=== PATIENT | male | born 1940 | race Hispanic/Latino ===

== ENCOUNTER 2021-05-19 07:07 | Day surgery (SDC) | payer OTHER ==
[2021-05-13 14:45] LABS: APPEARANCE,URINE CLEAR (CLEAR); BASOPHILS % (AUTO) 1.1 % (0.0-5.0); BILIRUBIN,URINE NEGATIVE (NEGATIVE); COLOR,URINE YELLOW (YELLOW); GLUCOSE, URINE (UA) 100 mg/dL (NEGATIVE); HEMATOCRIT 36.4 % (42-54); KETONES,URINE NEGATIVE (NEGATIVE); LEUKOCYTE ESTERASE ,URINE NEGATIVE (NEGATIVE); MEAN CORPUSCULAR HEMOGLOBIN 29.5 pg (27.0-33.0); MEAN CORPUSCULAR HGB CONC 32.1 g/dL (32.0-36.0); MEAN CORPUSCULAR VOLUME 91.9 fL (79-99); MONOCYTES % (AUTO) 8.6 % (3.0-13.0); NEUTROPHILS % (AUTO) 56.8 % (40.0-77.0); NITRATE,URINE NEGATIVE (NEGATIVE); OCCULT BLOOD,URINE NEGATIVE (NEGATIVE); PH,URINE 6.5 (5.0-8.0); PLATELET COUNT (AUTO) 213 K/uL (130-400); PROTEIN,URINE NEGATIVE (NEGATIVE); RED BLOOD CELL COUNT(AUTO) 3.96 MIL/uL (4.50-6.20); RED CELL DISTRIBUTION WIDTH 12.8 % (11.0-15.5); WHITE BLOOD COUNT (AUTO) 6.6 K/uL (4.8-10.8)
[2021-05-13 14:50] LABS: CREATININE 0.9 mg/dL (0.5-1.5); POTASSIUM 4.1 mmol/L (3.5-5.1)
[2021-05-13 14:54] LABS: INR 1.02 (0.85-1.15); PROTHROMBIN TIME 11.1 SEC (9.6-11.6)
[2021-05-13 14:55] LABS: PARTIAL THROMBOPLASTIN TIME 27.3 SEC (26.3-35.5)
[2021-05-13 15:10] LABS: RBC,URINE 0-1 /HPF (0-1); WBC,URINE 0-1 /HPF (0-1)
[2021-05-13 15:11] LABS: BACTERIA,URINE Rare /HPF (None Seen); MUCUS,URINE Rare LPF (None Seen); SQUAMOUS EPITHELIAL CELL,UR Rare /HPF (0-2)
[2021-05-18 09:39] VITALS: BP 135/62
[2021-05-19] VITALS (16 sets, daily range): BP systolic 114–133; BP diastolic 60–76
[~2021-05-19] VITALS: Ht 175.3 cm; Wt 82.1 kg
[~2021-05-19 07:07] MED LIST: AEC81 PO; ATOR10 PO; CARV3.12 PO; CEFTRIAXONE 1G VIAL IVP SCH; DILT240C94 PO; DOXA4TAB3 PO; ENAL20TA18 PO; GENTAMICIN 80 MG/NS 100 ML PB 100 ML IV SCH; HYDR25TA PO; INSU100V37 SQ; METF-446 PO; PANT40TA54 PO; TADA5TAB PO
[2021-05-19] MEDS ORDERED: LIDOCAINE PF 100MG/5ML (2%) SYRINGE 5ML ONE (07:19)
[2021-05-19] MEDS ORDERED: SUCCINYLCHOLINE 200MG/10ML SYR ONE (07:19)
[2021-05-19] MEDS ORDERED: DEXAMETHASONE SOD PHOSPHATE 10MG/ML 1ML VIAL ONE (07:19)
[2021-05-19] MEDS ORDERED: PROPOFOL 10 MG/ML 20ML VIAL IV ONE (07:20)
[2021-05-19] MEDS ORDERED: NEOSTIGMINE 5MG/5ML SYR IV ONE (07:20)
[2021-05-19] MEDS ORDERED: MIDAZOLAM HCL 1 MG/ML 2ML VIAL ONE (07:20)
[2021-05-19] MEDS ORDERED: ROCURONIUM 10MG/1ML SYR 10 MG/ML ML ONE (07:20)
[2021-05-19] MEDS ORDERED: GLYCOPYRROLATE 1 MG/5 ML SYRINGE ONE (07:20)
[2021-05-19] MEDS ORDERED: ONDANSETRON 4MG INJ ONE (07:20)
[2021-05-19] MEDS ORDERED: FENTANYL CITRATE PF 50 MCG/1 ML 2ML VIAL ONE (07:21)
[2021-05-19] MEDS ORDERED: 0.9%NACL 1000ML 1,000 ML IV ONE (08:07)
[2021-05-19] MEDS ORDERED: CEFTRIAXONE 1G VIAL IVP ONE (08:46)
[2021-05-19] MEDS ORDERED: EPHEDRINE SULFATE 50 MG/ML AMPULE ONE (09:11)
== END 2021-05-19 11:05 | disposition home or self-care (01) ==
LOC: DAH 07:07
PROVIDERS: ATTEND Urology
DX: C61 Malignant neoplasm of prostate (principal); Z20.822 Contact with and (suspected) exposure to COVID-19; I10 Essential (primary) hypertension; I25.10 Atherosclerotic heart disease of native coronary artery without angina pectoris; K21.9 Gastro-esophageal reflux disease without esophagitis; E11.9 Type 2 diabetes mellitus without complications; Z95.1 Presence of aortocoronary bypass graft; Z95.5 Presence of coronary angioplasty implant and graft; Z79.84 Long term (current) use of oral hypoglycemic drugs; Z79.82 Long term (current) use of aspirin; Z79.899 Other long term (current) drug therapy; Z79.01 Long term (current) use of anticoagulants
CPT/HCPCS: 36415; 55700; 76872; 76942; 80048; 81001; 82948 ×2; 85025; 85610; 85730; 87088; 87635; 88305; 88341; 88342; 93005; A4215 ×2; A4221; A4222; A4223; A4649; A4663; A6260; C9803; J0330; J0696 ×2; J1100; J2001; J2250; J2405; J2704; J2710; J3010; J3490 ×2; J7030; J1580